=== PATIENT | female | born 1945 | race Caucasian/White ===

== ENCOUNTER 2018-05-15 07:15 | Inpatient (IN) | payer OTHER ==
[~2018-05-15 07:15] MED LIST: BACITRACIN 50,000 UNITS/10 ML SYR IRR ONE; BUPIVACAINE 0.25% 30 ML SDV ONE; CHLORHEXIDINE GLUC HIBICLENS 118 ML BTL TP ONE; CITRATE DEXTROSE SOLN 500 ML BAG ONE; EPINEPHrine 1 MG/ML INJ ONE; THROMBIN (BOVINE) 20,000 UNIT VIAL TP ONE
[2018-05-15] MEDS ORDERED: ceFAZolin 2 GM/DEXTROSE 100 ML IV ONE (08:14)
[2018-05-15] MEDS ORDERED: GABAPENTIN 300 MG CAP PO ONE (08:14)
[2018-05-15] MEDS ORDERED: morphINE PF 0.2 MG in SYRINGE INTRATHECAL 1 SYR IT ONE (08:14)
[2018-05-15] MEDS ORDERED: fentaNYL 50 MCG in SYRINGE INTRATHECAL 1 SYR IT ONE (08:14)
[2018-05-15] MEDS ORDERED: ACETAMINOPHEN 500 MG TAB PO ONE (08:14)
[2018-05-15] MEDS ORDERED: LR 1,000 ML IV ONE (08:16)
--- NOTE | 2018-05-15 08:37 | PDANEPAE ---
ANE Past Medical History - Cardiovascular History Hx Hypertension: No Hx Arrhythmias: No Hx Chest Pain: No Hx Coronary Artery / Peripheral Vascular Disease: No Hx CHF / Valvular Disease: No Hx Palpitations: No - Pulmonary History Hx COPD: No Hx Asthma/Reactive Airway Disease: No Hx Recent Upper Respiratory Infection: No Hx Oxygen in Use at Home: No Hx Sleep Apnea: No Sleep Apnea Screening Result - Last Documented: Negative - Neurologic History Hx Cerebrovascular Accident: No Hx Seizures: No Hx Dementia: No - Endocrine History Hx Diabetes: No - Renal History Hx Renal Disorders: No - Liver History Hx Hepatic Disorders: No - Neurological & Psychiatric Hx Hx Neurological and Psychiatric Disorders: Yes Neurological / Psychiatric History Comment: s/p occipital meningioma resection. Residual tumor, monitoring annually via CT scan. Numbness,weakness right leg. feels like torneque around groin - Cancer History Hx Cancer: No - Congenital Disorder History Hx Congenital Disorders: No - GI History GERD: mild Hx Gastrointestinal Disorders: No - Other Health History Other Health History: glaucoma. bruises easily,fragile skin. hysterectomy 1997 - Chronic Pain History Chronic Pain: Yes (bilat hands,knuckles are very painful) - Surgical History Prior Surgeries: 01/03 LTKA. 11/02 CATARACT. L KNEESCOPE 05/05. 08/02 LEFT EYE SURGERY FOR GLAUCOMA. 12/25 MENINGIOMA RESECTION ANE Review of Systems Review of Systems: - Exercise capacity METS (RN): 4 METS ANE Patient History - Allergies Allergies/Adverse Reactions: No Known Allergies Allergy (Verified 05/07/18 10:18) - Home Medications Home medications: home medication list seen and reviewed Home Medications: Dorzolamide/Timolol [Cosopt (*)] 1 drops LEFTEYE BID 03/21/14 [Last Taken Unknown] Acetaminophen [Tylenol ES 500 mg (*)] 500 - 1,000 mg PO Q6HRS PRN 05/07/18 [ Last Taken Unknown] Acetaminophen [Tylenol ES 500 mg (*)] 500 mg PO BID 05/07/18 [Last Taken Unknown ] Acetamn/Diphenhydramine 500/25 [Tylenol PM (*)] 2 each PO HS 05/07/18 [Last Taken Unknown] Glucosamine/Chondroitin [Glucosamine/Chondroitin (*)] 2 each PO DAILY 05/07/18 [ Last Taken Unknown] Herbals/Supplements -Info Only 1 ea PO DAILY 05/07/18 [Last Taken Unknown] Meloxicam 15 mg PO DAILY 05/07/18 [Last Taken Unknown] Multivitamins [Multivitamin (*)] 1 each PO DAILY 05/07/18 [Last Taken Unknown] Ranitidine HCl [Zantac] 150 mg PO DAILY PRN 05/07/18 [Last Taken Unknown] - NPO status NPO Status: no food or drink >8 hours - Anes Hx Anes Hx: post operative nausea and vomiting - Smoking Hx Smoking Status: Former smoker - Family Anes Hx Family Hx Anesthesia Complications: none ANE Labs/Vital Signs - Vital Signs Vital Signs: reviewed preoperatively; see RN documention for details Height: 172.72 cm Weight: 67.132 kg ANE Physical Exam - Airway Neck exam: FROM Mallampati Score: Class 3 Mouth exam: normal dental/mouth exam - ASA Status ASA Status: II ANE Anesthesia Plan Anesthesia Plan: general endotracheal anesthesia Lines/Monitors: arterial line, additional IV
[2018-05-15] MEDS ORDERED: DEXMEDETOMIDINE HCL 400 MCG in NS 100 ML IV SCH (09:00)
[2018-05-15] MEDS ORDERED: TRANEXAMIC ACID 1,000 MG in NS 100 ML IV ONE (09:00)
[2018-05-15] MEDS ORDERED: SCOPOLAMINE HYDROBROMIDE 1 MG/3 DAYS PATCH TD ONE (09:34)
[2018-05-15] MEDS ORDERED: MIDAZOLAM 2 MG/2 ML VIAL IVP ONE (09:35)
[2018-05-15] MEDS ORDERED: PROPOFOL 200 MG/20 ML VIAL ONE (09:45)
[2018-05-15] MEDS ORDERED: PROPOFOL/EMULSION 500 MG/50 ML BOTTLE IV ONE ×4 (09:45→15:41)
[2018-05-15] MEDS ORDERED: fentaNYL 100 MCG/2 ML INJ ONE (09:45)
[2018-05-15] MEDS ORDERED: ROCURONIUM 50 MG/5 ML VIAL ONE (09:49)
--- NOTE | 2018-05-15 09:53 | PDHPUP ---
History & Physical Update H&P update statement: This history and physical update is based on an assessment of the patient which was completed after admission or registration (within 24 hours), but prior to the surgery/procedure. H&P update: H&P reviewed & patient examined, no change in patient's condition since H&P completed
[2018-05-15] MEDS ORDERED: PETROLAT,WHT/MIN OIL/SOD CHL 3.5 GM OPHT.OINT ONE (10:01)
[2018-05-15] MEDS ORDERED: METOCLOPRAMIDE 10 MG/2 ML VIAL ONE (10:07)
[2018-05-15] MEDS ORDERED: GLYCOPYRROLATE 0.2 MG/1 ML VIAL ONE ×3 (10:07→11:46)
[2018-05-15] MEDS ORDERED: RANITIDINE 50 MG/2 ML VIAL ONE (10:07)
[2018-05-15] MEDS ORDERED: NEOSTIGMINE METHYLSULFATE 5 MG/5 ML SYR ONE (11:25)
[2018-05-15] MEDS ORDERED: PHENYLEPHRINE 10 MG/ML SDV ONE (11:38)
[2018-05-15] MEDS ORDERED: ceFAZolin 1 GM VIAL ONE ×3 (12:52→16:51)
[2018-05-15] MEDS ORDERED: CITRATE DEXTROSE SOLN 500 ML BAG ONE (14:25)
[2018-05-15] MEDS ORDERED: HYDROmorphONE/DILAUDID 2 MG/ML INJ ONE (15:09)
--- NOTE | 2018-05-15 15:28 | POSTANESTH ---
Post Anesthetic Evaluation Cardiovascular Status: Tx Hyper/Hypo-tension (likely hypovolemic - responsive to fluids/low dose phenylephrine) Respiratory Status: Normal, Stable Level of Consciousness/Mental Status: Unconscious (still sedated from precedex gtt) Pain Control: Adequate, Prn Tx Ordered Nausea/Vomiting Control: Adequate, Prn Tx Ordered Complications Possibly Related to Anesthesia: None Noted
[2018-05-15] MEDS ORDERED: LABETALOL HCL 5 MG/ML 20 ML MDV IVP PRN (15:33)
[2018-05-15] MEDS ORDERED: oxyCODONE IR 5 MG TAB PO PRN (15:33)
[2018-05-15] MEDS ORDERED: LR 500 ML IV PRN (15:33)
[2018-05-15] MEDS ORDERED: ALBUTEROL 3 ML DEYVIAL IH PRN (15:33)
[2018-05-15] MEDS ORDERED: NALOXONE HCL 0.4 MG/ML INJ IVP PRN (15:33)
[2018-05-15] MEDS ORDERED: HYDROCODONE/APAP 5/325 TAB PO PRN (15:33)
[2018-05-15] MEDS ORDERED: DIAZEPAM 5 MG/ML 1 ML SYR IVP PRN (15:33)
[2018-05-15] MEDS ORDERED: fentaNYL 100 MCG/2 ML INJ IVP PRN (15:33)
[2018-05-15] MEDS ORDERED: ONDANSETRON 4 MG/2 ML VIAL IVP PRN (15:33)
[2018-05-15] MEDS ORDERED: PROMETHAZINE HCL 25 MG/ML INJ IVP PRN (15:33)
[2018-05-15] MEDS ORDERED: HYDROmorphONE/DILAUDID 2 MG/ML INJ IVP PRN (15:33)
[2018-05-15] MEDS ORDERED: BUPIVACAINE 0.25% 30 ML SDV ONE (17:18)
[2018-05-15] MEDS ORDERED: diphenhydrAMINE 25 MG CAP PO PRN (17:36)
[2018-05-15] MEDS ORDERED: HYDROmorphONE/DILAUDID 1 MG/ML INJ IVP PRN (17:36)
[2018-05-15] MEDS ORDERED: LACTULOSE 20 GM/30 ML UDCUP PO PRN (17:36)
[2018-05-15] MEDS ORDERED: BISACODYL 10 MG SUPP PR PRN (17:36)
[2018-05-15] MEDS ORDERED: MAGNESIUM HYDROXIDE 30 ML UDCUP PO PRN (17:36)
[2018-05-15] MEDS ORDERED: ONDANSETRON DISINTEGRATING 4 MG TAB PO PRN (17:36)
--- NOTE | 2018-05-15 17:43 | POSTOPPROG ---
Post Op Note Date of Operation: 05/15/18 Surgeon: Gage Barriga Kieselguhr Regenerator Operator: Mikey Harris Anesthesiologist: Hailey Anesthesia: GET(General Endotracheal) Pre-op Diagnosis: Lumbar DJD, Spinal stenosis T12-L5, degen scoliosis Post-op Diagnosis: Same Indication: Back and right leg pain Procedure: T12-L5 fusion with L2/3,3/4,4/5 TLIF Findings: Severe DJD, spinal stenosis, spondylolisthesis Inf/Abcess present in the surg proc area at time of surgery?: No EBL: 100-500 Complications: None Drains: Clovis Wei (to bulb suction)
[2018-05-15] MEDS ORDERED: PHENYLEPHRINE HCL 100 MCG/ML SYR ONE (17:54)
[2018-05-15] MEDS: PHENYLEPHRINE HCL 100 MCG/ML SYR IVP PRN ×2 (17:55→18:05)
--- NOTE | 2018-05-15 18:02 | SOAPPROG ---
SOAP Progress Note Assessment/Plan: POST OP CHECK: Assessment: s/p T12-L 5 fusion with L2/3,3/4,4/5 TLIF Plan: CPM in PACU, then transfer to ICU per protocol BUTCH to bulb suction Eliseo drip started in PACU and continued upon arrival to ICU. 500ml bolus of LR also given in PACU. I discussed patient's vitals and exam with Dr. Diamond at 1830 and he is aware she was started on a Neosynephrine drip. 05/15/18 17:43 05/15/18 19:05 Subjective: Pt is asleep and unarousable in PACU. Anesthesia aware and reports she was given Precedex during surgery which he attributes to her sedation. Objective: Vital Signs Temp Pulse Resp BP Pulse Ox 36.5 C 56 L 16 157/68 H 98 05/15/18 10:07 05/15/18 10:07 05/15/18 10:07 05/15/18 10:07 05/15/18 10:07 Vitals: In PACU: HR: 81 BP: 87/44 02: 100% Neuro: PEOPLES to command per RN who called me at 1900 to report she did move everything and follow commands upon her arrival to ICU ICD10 Worksheet Patient Problems: Problems Problem Status Onset Lumbar spinal stenosis Acute - ICD10 Problem Qualifiers (1) Lumbar spinal stenosis
[2018-05-15] MEDS ORDERED: ONDANSETRON 4 MG/2 ML VIAL ONE (18:08)
[2018-05-15] MEDS ORDERED: PHENYLEPHRINE HCL 50 MG in D5W 250 ML IV SCH (18:30)
[2018-05-15] MEDS: ONDANSETRON 4 MG/2 ML VIAL IVP PRN (18:40)
--- NOTE | 2018-05-15 19:05 | GOP ---
[f rep st] OPERATIVE REPORT DATE OF OPERATION: 05/15/2018 SURGEON: Gage Barriga MD NEUROSURGEON: Gage Barriga MD. THERAPY COORDINATOR: Mikey Harris PA-C. ANESTHESIA: General endotracheal. PREOPERATIVE DIAGNOSIS: 1. Severe multilevel lumbar degenerative scoliosis with critical spinal stenosis and lateral recess and neural foraminal encroachment. 2. Intractable low back pain and right lower extremity radicular symptoms. 3. Failed conservative care. 4. High risk surgical candidate, given age of 72 years, comorbidities and required surgical interven tion. POSTOPERATIVE DIAGNOSIS: 1. Severe multilevel lumbar degenerative scoliosis with critical spinal stenosis and lateral recess and neural foraminal encroachment. 2. Intractable low back pain and right lower extremity radicular symptoms. 3. Failed conservative care. 4. High risk surgical candidate, given age of 72 years, comorbidities and required surgical interven tion. PROCEDURE PERFORMED: 1. Right-sided far lateral transpedicular decompression at the L2-3, L3-4 and L4-[address] ment of posterior segmental (pedicle screw and axial device) fixation and posterior lateral fusion fr om T12-L5. 2. L2-3, L3-4 and L4-5 posterior/transforaminal lumbar interbody fusion with 2 structural PEEK inter body spacers, local autograft bone, morphogenic protein and morselized allograft. 3. Use of intraoperative microscopy fluoroscopy. 4. Computer volumetric stereotactic navigation with intraoperative neurophysiologic testing. 5. Injection of intrathecal narcotic analgesics and subcutaneous and intramuscular local anesthesia for postoperative pain control. FINDINGS: ESTIMATED BLOOD LOSS: 400 cc. INDICATIONS: The patient is a 72-year-old woman with intractable low back pain and right lower extre mity radicular symptoms secondary to severe multilevel lumbar degenerative scoliosis with critical sp inal stenosis and lateral recess impingement and neuroforaminal encroachment who wants to proceed. S he has failed extensive conservative care and presents now for surgical decompression and stabilizati on. DESCRIPTION OF PROCEDURE: After informed consent was obtained, the patient was taken to the operatin g room and placed into the prone position on the Clovis table. The thoracolumbosacral areas were pr epped and draped in a sterile fashion and after fluoroscopic localization of the correct levels, the subcutaneous and intramuscular tissues were infiltrated with local anesthesia. A midline linear inci najma was then created from approximately T12 to L5. This was carried down to the fascial layer, whic h was incised using monopolar electrocautery and carried in a subperiosteal plane along the spinous p rocesses and lamina bilaterally. Intraoperative fluoroscopy was again utilized to verify the correct levels. Following this, the dissection was carried out over the facet joints. The microscope was t hen brought in and right-sided far lateral transpedicular decompressions were performed with complete unroofing of the facet joints and neural foramina at L2-3, L3-4 and L4-5 on the right. Following ex cellent decompressions of the central canal and lateral recesses and neural foramen, the collegefeed onavigational system was brought in and using computer volumetric stereotactic navigation, pedicle sc rews were placed at T12, L1, L2, L3, L4 and L5 bilaterally. Each individual screw was tested neuroph ysiologically with the monopolar electrostimulation and interpretation of the potentials by the surge on. Arterial short rods were then placed first at L4-5, then at L3-4, then at L2-3, during which alexis e each individual interspace was gently distracted and complete diskectomies were performed at each l evel with preparation of the endplates and placement of 2 structural PEEK interbody spacers. Local a utograft and bone morphogenic protein and morselized allograft for L2-3, L3-4 and L4-5 posterior/feldman sforaminal lumbar interbody fusions. The short rods were then removed and longer rods were placed an d secured from T12 to L5 and rotated into place, such that the coronal curve was turned into more of a lordotic and anatomic curve with compression placed across each of the transforaminal lumbar interb josette fusion interspaces in order to facilitate bony union and to minimize the potential for posterior graft migration. The wound was then copiously irrigated with antibiotic irrigation and meticulous he mostasis was achieved. The remaining facet joints, transverse processes, and lamina were then extens ively decorticated from T12 to L5 and residual local autograft along with bone morphogenic protein an d morselized allograft were then placed out laterally for posterolateral fusion from T12 to L5. A dr harris was then placed. 200 mcg of Duramorph along with 50 mcg of fentanyl were injected intrathecally for postoperative pain control. The subcutaneous and intramuscular tissues were re-infiltrated with local anesthesia and the wound was closed in a layered fashion using interrupted Vicryl sutures, foll owed by Steri-Strips on the skin. COMPLICATIONS: None. DISPOSITION: The patient is currently in the process of being repositioned for extubation. /[id number]/MODL
[2018-05-15] MEDS: ceFAZolin 2 GM/DEXTROSE 100 ML IV SCH (20:18)
[2018-05-15] MEDS: ACETAMINOPHEN 500 MG TAB PO SCH (22:29)
[2018-05-15] MEDS: METHOCARBAMOL 750 MG TAB PO PRN (22:29)
[2018-05-15] MEDS: SENNOSIDES/DOCUSATE SODIUM TAB PO SCH (22:29)
[2018-05-15] MEDS: FAMOTIDINE 20 MG TAB PO SCH (22:29)
[2018-05-15] MEDS: GABAPENTIN 300 MG CAP PO SCH (22:29)
[2018-05-15] MEDS ORDERED: ALBUMIN 5% 250 ML IV PRN (22:50)
[2018-05-15] MEDS: DORZOLAMIDE/TIMOLOL 10 ML OPHT.BTL LEFTEYE SCH (23:05)
[2018-05-16] MEDS: POLYETHYLENE GLYCOL 3350 17 GM PKT PO SCH ×4 (01:20→21:40)
[2018-05-16] MEDS: ceFAZolin 2 GM/DEXTROSE 100 ML IV SCH (04:43)
[2018-05-16 05:21] LABS: PLATELET COUNT 166 10^3/uL (150-400)
[2018-05-16] MEDS: ACETAMINOPHEN 500 MG TAB PO SCH ×3 (06:01→21:39)
[2018-05-16] MEDS: GABAPENTIN 300 MG CAP PO SCH ×3 (06:01→21:40)
--- NOTE | 2018-05-16 07:14 | PDMN ---
Medical Necessity Medical necessity: [facility] IP only surgery; cpt 68295 T12-L5 Fusion with L2-L5 TLIF
--- NOTE | 2018-05-16 07:55 | SOAPPROG ---
SOAP Progress Note Assessment/Plan: Assessment: 72 yo F POD #1 T12-L5 fusion with L2/3, L3/4, L4/5 TLIF Plan: neuro: stable and doing well overall anemia from blood loss in surgery, follow hg/hct, not at transfusion criteria yet hypotension, keep SBP > 90 mmhg PT/OT LSO brace when out of bed scd/kaycee/kaycee lovenox for DVT prophylaxis transfer to floor please call with neuro changes patient seen by Dr Diamond 05/16/18 07:52 Subjective: minimal back pain, no leg pain, no weakness. Objective: Vital Signs Temp Pulse Resp BP Pulse Ox 36.5 C 86 72 H 93/38 L 14 L 05/16/18 04:00 05/16/18 07:00 05/16/18 07:00 05/16/18 07:00 05/16/18 07:00 Laboratory Results 05/16/18 05:04 05/16/18 05:04 05/15/18 05/16/18 05/17/18 05:59 05:59 05:59 Intake Total 6107 Output Total 1455 100 Balance 4652 -100 AAOx4, +FC PERRL, EOMI, no facial droop 5/5 + light touch C/D/I ICD10 Worksheet Patient Problems: Problems Problem Status Onset Lumbar spinal stenosis Acute
[2018-05-16] MEDS: DORZOLAMIDE/TIMOLOL 10 ML OPHT.BTL LEFTEYE SCH ×2 (09:23→21:40)
[2018-05-16] MEDS: SENNOSIDES/DOCUSATE SODIUM TAB PO SCH ×2 (09:24→21:40)
[2018-05-16] MEDS: FAMOTIDINE 20 MG TAB PO SCH ×2 (09:24→21:40)
[2018-05-16] MEDS: GLUCOSAMINE/CHONDROITIN CAP PO SCH (09:24)
[2018-05-16] MEDS: ENOXAPARIN 40 MG/0.4 ML SYR SC SCH (09:24)
[2018-05-16] MEDS ORDERED: PATCH REMOVAL 1 EA PATCH TD ONE (10:00)
--- NOTE | 2018-05-16 13:03 | ASMTCASEMG ---
Living Arrangements What is your living Answers: With Partner arrangement? Who do you live with? Type Of Residence What kind of residence do Answers: House you live in? Type of Residence Facility Name Notes: Patient lists a [place] address. Discharge Plan Comments Coordination Status Comments Notes: Patient is a 72yo single female with a life partner who comes to [facility] for spinal surgery with Dr. Barriga. Patient lists a [place] address. OT/PT evals have been ordered. D/C plan TBD. CM will follow. Date Signed: 05/16/2018 12:46 PM Electronically Signed By:Rochelle Wu LCSW
[2018-05-16] MEDS: oxyCODONE IR 5 MG TAB PO PRN ×2 (13:29→19:12)
[2018-05-16] MEDS ORDERED: NS 500 ML IV ONE (17:00)
[2018-05-16] MEDS ORDERED: NS BOLUS 500 ML (Wide open) IV ONE (18:00)
[2018-05-16] MEDS: ONDANSETRON 4 MG/2 ML VIAL IVP PRN (18:19)
[2018-05-16] MEDS ORDERED: NS 1,000 ML IV SCH (19:00)
[2018-05-16] MEDS: METHOCARBAMOL 750 MG TAB PO PRN (21:42)
[2018-05-17] MEDS: oxyCODONE IR 5 MG TAB PO PRN ×4 (01:07→20:01)
[2018-05-17] MEDS: ACETAMINOPHEN 500 MG TAB PO SCH ×3 (05:42→21:27)
[2018-05-17] MEDS: GABAPENTIN 300 MG CAP PO SCH ×3 (05:42→21:25)
--- NOTE | 2018-05-17 07:24 | SOAPPROG ---
SOAP Progress Note Assessment/Plan: Assessment: 72 yo F POD #2 T12-L5 fusion with L2/3, L3/4, L4/5 TLIF Plan: neuro: stable and doing well overall anemia from blood loss in surgery, hg/hct, down to 6, will transfuse 2 units PRBC hypotension, keep SBP > 90 mmhg recheck cbc, bmp in am PT/OT LSO brace when out of bed scd/kaycee/kaycee lovenox for DVT prophylaxis transfer to floor please call with neuro changes patient seen by Dr Diamond 05/16/18 07:52 05/17/18 07:23 Subjective: continued back pain, some pain in left hip this am, no weakness. Objective: Vital Signs Temp Pulse Resp BP Pulse Ox 36.7 C 78 10 L 110/46 L 99 05/17/18 00:00 05/17/18 06:00 05/17/18 06:00 05/17/18 06:00 05/17/18 06:00 Laboratory Results 05/17/18 05:20 05/16/18 05:04 05/16/18 05/17/18 05/18/18 05:59 05:59 05:59 Intake Total 6107 3200 Output Total 1455 2675 Balance 4652 525 AAOx4, +FC PERRL, EOMI, no facial droop 5/5 + light touch C/D/I ICD10 Worksheet Patient Problems: Problems Problem Status Onset Lumbar spinal stenosis Acute
[2018-05-17] MEDS: DORZOLAMIDE/TIMOLOL 10 ML OPHT.BTL LEFTEYE SCH ×2 (10:25→20:03)
[2018-05-17] MEDS: ENOXAPARIN 40 MG/0.4 ML SYR SC SCH (10:25)
[2018-05-17] MEDS: SENNOSIDES/DOCUSATE SODIUM TAB PO SCH ×2 (10:25→21:25)
[2018-05-17] MEDS: GLUCOSAMINE/CHONDROITIN CAP PO SCH (10:25)
[2018-05-17] MEDS: FAMOTIDINE 20 MG TAB PO SCH ×2 (10:27→21:26)
[2018-05-17] MEDS: POLYETHYLENE GLYCOL 3350 17 GM PKT PO SCH ×3 (11:33→21:26)
[2018-05-17] MEDS: METHOCARBAMOL 750 MG TAB PO PRN (13:32)
[2018-05-18] MEDS: oxyCODONE IR 5 MG TAB PO PRN ×4 (00:09→20:36)
[2018-05-18] MEDS: ACETAMINOPHEN 500 MG TAB PO SCH ×3 (05:35→21:37)
[2018-05-18] MEDS: GABAPENTIN 300 MG CAP PO SCH ×3 (05:35→21:37)
[2018-05-18] MEDS: METHOCARBAMOL 750 MG TAB PO PRN ×2 (05:35→15:46)
[2018-05-18 06:09] LABS: PLATELET COUNT 155 10^3/uL (150-400)
--- NOTE | 2018-05-18 08:49 | SOAPPROG ---
SOAP Progress Note Assessment/Plan: Assessment: s/p T12-L 5 fusion with L2/3,3/4,4/5 TLIF POD#3 New left posterior leg pain started yesterday. not associated with weakness DC planning Plan: Will increase Gabapentin to 600 TID due to new left posterior leg pain BUTCH to bulb suction PT/OT as tolerated in brace Subjective: Lying in bed, comfortable but reports left posterior leg pain that started yesterday and goes into calf only when upright and moving. Otherwise no new issues. Right leg feels fine. Objective: Vital Signs Temp Pulse Resp BP Pulse Ox 36.6 C 84 16 131/49 H 95 05/18/18 08:00 05/18/18 08:00 05/18/18 08:00 05/18/18 08:00 05/18/18 08:00 Laboratory Results 05/18/18 05:34 05/18/18 05:34 05/17/18 05/18/18 05/19/18 05:59 05:59 05:59 Intake Total 3200 600 Output Total 2675 915 Balance 525 -315 Neuro: A+Ox4 follows commands 5/5 bilateral LE sens +Lt Dressing: CDI BUTCH: 165ml Post op xrays show good position of hardware T12-L5 ICD10 Worksheet Patient Problems: Problems Problem Status Onset Lumbar spinal stenosis Acute - ICD10 Problem Qualifiers (1) Lumbar spinal stenosis
[2018-05-18] MEDS: SENNOSIDES/DOCUSATE SODIUM TAB PO SCH ×2 (09:48→21:37)
[2018-05-18] MEDS: GLUCOSAMINE/CHONDROITIN CAP PO SCH (09:48)
[2018-05-18] MEDS: POLYETHYLENE GLYCOL 3350 17 GM PKT PO SCH ×3 (09:49→21:38)
[2018-05-18] MEDS: DORZOLAMIDE/TIMOLOL 10 ML OPHT.BTL LEFTEYE SCH ×2 (09:49→20:33)
[2018-05-18] MEDS: FAMOTIDINE 20 MG TAB PO SCH ×2 (09:49→21:37)
[2018-05-18] MEDS: ENOXAPARIN 40 MG/0.4 ML SYR SC SCH (09:49)
--- NOTE | 2018-05-18 13:46 | ASMTCMCOM ---
CM Note CM Note Notes: OT/PT rec SNF, pt requests referral to [facility] inpatient acute rehab. Referral sent in [facility] and Larissa Mcwilliams with [facility] reports pt likely a good candidate for their program, she will look into when they have bed availability. CM to follow. D/c plan of care: [facility] inpatient acute rehab Date Signed: 05/18/2018 01:46 PM Electronically Signed By:ABDI Limon
[2018-05-19] MEDS: oxyCODONE IR 5 MG TAB PO PRN ×3 (03:49→12:44)
[2018-05-19] MEDS: GABAPENTIN 300 MG CAP PO SCH ×2 (06:27→13:24)
[2018-05-19] MEDS: ACETAMINOPHEN 500 MG TAB PO SCH (06:27)
[2018-05-19 07:45] VITALS: BP 161/61
[2018-05-19] MEDS: DORZOLAMIDE/TIMOLOL 10 ML OPHT.BTL LEFTEYE SCH (08:13)
[2018-05-19] MEDS: ENOXAPARIN 40 MG/0.4 ML SYR SC SCH (08:13)
[2018-05-19] MEDS: GLUCOSAMINE/CHONDROITIN CAP PO SCH (08:14)
[2018-05-19] MEDS: FAMOTIDINE 20 MG TAB PO SCH (08:14)
[2018-05-19] MEDS: SENNOSIDES/DOCUSATE SODIUM TAB PO SCH (08:14)
[2018-05-19] MEDS: POLYETHYLENE GLYCOL 3350 17 GM PKT PO SCH (08:14)
[2018-05-19] MEDS: METHOCARBAMOL 750 MG TAB PO PRN (08:33)
--- NOTE | 2018-05-19 09:37 | SOAPPROG ---
SOAP Progress Note Assessment/Plan: Assessment: 72 yo F POD #5 T12-L5 fusion with L2/3, L3/4, L4/5 TLIF Plan: neuro: stable and doing well overall some nerve pain in left leg, on neurontin, will follow for now anemia from blood loss in surgery, hg/hct, down to 6/21, will transfuse 2 units PRBC, stable now PT/OT power x 1, will remove LSO brace when out of bed scd/kaycee/kaycee lovenox for DVT prophylaxis post op x-rays look good likely dc to [facility] rehab today please call with neuro changes patient seen by Dr Diamond 05/16/18 07:52 05/17/18 07:23 05/19/18 09:35 Subjective: continued back pain, jennifer nerve pain in left leg, no leg swelling, no chest pain or shortness of breath. Objective: Vital Signs Temp Pulse Resp BP Pulse Ox 36.9 C 74 16 161/61 H 88 L 05/19/18 07:41 05/19/18 07:41 05/19/18 07:41 05/19/18 07:41 05/19/18 07:41 Laboratory Results 05/18/18 05:34 05/18/18 05:34 05/18/18 05/19/18 05/20/18 05:59 05:59 05:59 Intake Total 600 800 Output Total 915 8370 300 Balance -315 -1660 -300 AAOx4 ,+FC PERRL, EOMI, no facial droop 5/5 + light touch C/D/I ICD10 Worksheet Patient Problems: Problems Problem Status Onset Lumbar spinal stenosis Acute
--- NOTE | 2018-05-19 10:34 | PDIAF ---
- Diagnosis Code Status: Full Code - Medication Management Discharge Medications: electronically signed and located in the Home Medication List. PIC Care - Routine: N/A - Orders Services needed: Physical Therapy, Occupational Therapy Diet Recommendation: no restrictions on diet Diet Texture: Regular Texture Diet Activity/Weight Bearing Restrictions: LSO brace when out of bed Additional Instructions: discharge with lumbar fusion instructions follow up with Dr Diamond in 2 weeks, to schedule appointment LSO brace when out of bed. - Follow Up Care Current Providers and Referrals: NONE *PRIMARY CARE P,. [Primary Care Provider] -
--- NOTE | 2018-05-19 11:08 | ASMTLACE ---
LACE Length of stay for Answers: 4-6 days current admission Acuity / Level of Answers: Yes Care: Did the patient have an inpatient admission? Comorbidities - select Answers: Opioid dependence all that apply / Chronic pain # of Emergency department Answers: 0 visits in the last 6 months Score: 11 Date Signed: 05/19/2018 11:08 AM Electronically Signed By:Kavitha Huitron RN
--- NOTE | 2018-05-19 11:10 | ASMTDCNOTE ---
Case Management Discharge Discharge Order Complete? Answers: Yes Patient to Obtain Answers: Other Notes: [facility] Medications Transportation Arranged Answers: Other Notes: [facility] Transport will Pick (Date 05/19/2018 01:45 PM & Time) Faxed Final Orders Answers: Yes Family Notified Answers: Yes Discharge Comments Notes: Patient discharged to [facility]. Orders sent and received by Tasha at facility. Tasha arranged transport. DESIREE Purcell to call report. Date Signed: 05/19/2018 11:09 AM Electronically Signed By:Kavitha Huitron RN
--- NOTE | 2018-05-19 16:01 | ASDISCHSUM ---
Discharge Information Plan Status:Inpatient Rehab Medically Cleared to Leave: Discharge Date:05/19/2018 01:59 PM CM D/C Disposition: ADT D/C Disposition:Other Rehab, Not [place] Projected Discharge Date:05/19/2018 11:00 AM Transportation at D/C: Discharge Delay Reason: Follow-Up Date:05/19/2018 11:00 AM Discharge Slot: Final Diagnosis: Placement Information Referral Type:Rehabilitation Hospital Referral ID:[id number] Provider Name:[facility] Address 1:[address] Address 2: City:[place] Selection Factors: State:[place] Patient Contact Information Contact Name:ARYAN Relationship:Life Partner Address:[address] [place] Alternate Phone: State/Zip Code:[place] [address] Email: Financial Information Financial Class:Medicare Primary Plan Desc:MEDICARE INPATIENT Primary Plan Number:[id number] Secondary Plan Desc:BARBARA JEREZ Secondary Plan Number:[id number] Assessment Information LACE LACE Length of stay for Answers: 4-6 days current admission Acuity / Level of Answers: Yes Care: Did the patient have an inpatient admission? Comorbidities - select Answers: Opioid dependence all that apply / Chronic pain # of Emergency department Answers: 0 visits in the last 6 months Score: 11 Date Signed: 05/19/2018 11:08 AM Electronically Signed By:Kavitha Huitron RN [facility] Initial CM Assessment Living Arrangements What is your living Answers: With Partner arrangement? Who do you live with? Type Of Residence What kind of residence do Answers: House you live in? Type of Residence Facility Name Notes: Patient lists a [place] address. Discharge Plan Comments Coordination Status Comments Notes: Patient is a 72yo single female with a life partner who comes to [facility] for spinal surgery with Dr. Barriga. Patient lists a [place] address. OT/PT evals have been ordered. D/C plan TBD. CM will follow. Date Signed: 05/16/2018 12:46 PM Electronically Signed By:Rochelle Wu LCSW [facility] CM Progress Note CM Note CM Note Notes: OT/PT rec SNF, pt requests referral to [facility] inpatient acute rehab. [facility] and Larissa Mcwilliams with [facility] reports pt likely a good candidate for their program, she will look into when they have bed availability. CM to follow. D/c plan of care: [facility] inpatient acute rehab Date Signed: 05/18/2018 01:46 PM Electronically Signed By:ABDI Limon Case Management Discharge Plan Note Case Management Discharge Discharge Order Complete? Answers: Yes Patient to Obtain Answers: Other Notes: [facility] Medications Transportation Arranged Answers: Other Notes: [facility] Transport will Pick (Date 05/19/2018 01:45 PM & Time) Faxed Final Orders Answers: Yes Family Notified Answers: Yes Discharge Comments Notes: Patient discharged to [facility]. Orders sent and received by Tasha at facility. Tasha arranged transport. DESIREE Purcell to call report. Date Signed: 05/19/2018 11:09 AM Electronically Signed By:Kavitha Huitron RN Intervention Information
--- NOTE | 2018-06-07 11:13 | GDS ---
[f rep st] DISCHARGE SUMMARY DISCHARGE DIAGNOSES: Multilevel lumbar degenerative disk disease, spinal stenosis, scoliosis, and la teral recess and neural foraminal encroachment. PROCEDURE PERFORMED: Right-sided far-lateral transpedicular decompression at L2-3, L3-4, and L4-5, w ith placement of posterior segmental pedicle screws; and posterolateral fusion from T12 to L5 with L2 -3, L3-4, and L4-5 transforaminal lumbar interbody fusion and T12 to L5 instrumentation. There were no intraoperative complications. HISTORY AND HOSPITAL COURSE: The patient is a pleasant 73-year-old female, who presented to our [facility] with intractable low back pain and right lower extremity radicular symptoms secondary to severe mu ltilevel lumbar degenerative disease, scoliosis, and critical spinal stenosis with lateral recess imp ingement. She failed to improve with conservative treatments and was felt to be a candidate for surg ical intervention mentioned above. There were no intraoperative complications. Postoperatively, the patient was transferred to the floor where her pain was controlled with oral and IV pain medications and muscle relaxants. She was fitted with an LSO brace. Her activity was advanced as tolerated wit Physical Therapy and Occupational Therapy. On 05/17/2018, she underwent AP and lateral x-rays of t he lumbar spine, which demonstrated satisfactory position of her hardware. The patient was found to have postoperative anemia secondary to intraoperative blood loss and was transfused with 2 units of p acked red blood cells, with improvement of her hemoglobin and hematocrit. Ultimately, the patient's pain was controlled with an oral regimen of pain medications and muscle relaxants, as well as gabapen tin and Tylenol. She continued to improve during her hospital stay with notable improvement of her p reoperative right leg pain. She was deemed stable for transfer to [facility], and her J P drain was removed prior to transfer to that facility. The patient was provided instructions regard ing postoperative care for her lumbar fusion and instructions. She was instructed to contact our off ice with any questions or concerns prior to her previously scheduled postoperative appointment. /[id number]/MODL
== END 2018-05-19 13:59 | DRG 454 ==
LOC: F3N 07:57 → F2N 16:25 → F3N 05-17 13:56
PROVIDERS: ADMIT Neurological Surgery; ATTEND Neurological Surgery
PROC: 0SG1071 Fusion of 2 or more Lumbar Vertebral Joints with Autologous Tissue Substitute, Posterior Approach, Posterior Column, Open Approach (ICD-10-PCS; principal; 2018-05-15 10:36)
PROC: 0SG10AJ Fusion of 2 or more Lumbar Vertebral Joints with Interbody Fusion Device, Posterior Approach, Anterior Column, Open Approach (ICD-10-PCS; principal; 2018-05-15 10:36)
PROC: 3E0U0GB Introduction of Recombinant Bone Morphogenetic Protein into Joints, Open Approach (ICD-10-PCS; principal; 2018-05-15 10:36)
PROC: 00NY0ZZ Release Lumbar Spinal Cord, Open Approach (ICD-10-PCS; principal; 2018-05-15 10:36)
PROC: 0ST20ZZ Resection of Lumbar Vertebral Disc, Open Approach (ICD-10-PCS; principal; 2018-05-15 10:36)
PROC: 0RGA071 Fusion of Thoracolumbar Vertebral Joint with Autologous Tissue Substitute, Posterior Approach, Posterior Column, Open Approach (ICD-10-PCS; principal; 2018-05-15 10:36)
PROC: 8E0WXBF Computer Assisted Procedure of Trunk Region, With Fluoroscopy (ICD-10-PCS; principal; 2018-05-15 10:36)
PROC: 01NB0ZZ Release Lumbar Nerve, Open Approach (ICD-10-PCS; principal; 2018-05-15 10:36)
PROC: 4A1004G Monitoring of Central Nervous Electrical Activity, Intraoperative, Open Approach (ICD-10-PCS; principal; 2018-05-15 10:36)
PROC: 30233N1 Transfusion of Nonautologous Red Blood Cells into Peripheral Vein, Percutaneous Approach (ICD-10-PCS; 2018-05-17)
DX: M48.061 Spinal stenosis, lumbar region without neurogenic claudication (principal); M41.9 Scoliosis, unspecified; M54.16 Radiculopathy, lumbar region; D62 Acute posthemorrhagic anemia
CPT/HCPCS: 82435-PO; 82565-PO; 82947-PO; 84132-PO; 84295-PO; 84520-PO; 85014-ER; 97116-GP; 97162-GP; 97165-GO; 97530-GO; 97530-GP; 97535-GO; C1713; C1762; J0171; J0690; J1170; J1650; J2250; J2274; J2370; J2405; J2704; J2710; J2765; J2780; J3010; P9016; P9041